=== PATIENT | male | born 1980 | race Caucasian/White ===

== ENCOUNTER 2018-10-03 10:14 | Emergency (ER) | payer SELFPAY ==
--- NOTE | 2018-10-03 11:00 | ERPHSYRPT ---
- History of Present Illness Time Seen by Provider: 10/03/18 10:39 Source: patient Exam Limitations: no limitations Patient Subjective Stated Complaint: PT states "I went to the dentist wednesday and they gave me antibiotics and they told me to come back today to pull the tooth but there is still an infection and they told me to come here to maybe get a shot" Triage Nursing Assessment: Pt presented alert and oriented X 3, skin pwd Pt ambulates with an upright steady gait, able to speak in clear full sentences. pt in no apparent respiratory distress. Physician History: Pt started c/o right lower tooth ache 3 days ago, he was seen by dentist and started on PO Clindamycin 600mg TID. He was seen again today and was sent here. Pt denies severe headaches, fever, nausea, vomiting, no throat swelling, difficulty swallowing or breathing, other complaints, besides the tooth aches. Timing/Duration: gradual onset Severity: moderate ENT Location: dental Prearrival Treatment: prescription meds (Clindamycin 600mg TID) Modifying Factors: Improves With: nothing Associated Symptoms: jaw pain, tooth pain, No cough, No fever, No facial pain/ swelling, No headache, No neck pain, No sore throat, No difficulty swallowing, No voice change Allergies/Adverse Reactions: No Known Drug Allergies Allergy (Unverified 10/03/18 10:25) Home Medications: Clindamycin HCl 300 mg PO TID 10/03/18 [History] Hx Tetanus, Diphtheria Vaccination/Date Given: No Hx Influenza Vaccination/Date Given: No Hx Pneumococcal Vaccination/Date Given: No Immunizations Up to Date: Yes - Review of Systems Constitutional: No Symptoms Eyes: No Symptoms Ears, Nose, & Throat: Other (dental pain), No Throat Pain, No Throat Swelling, No Hoarse, No Painful Swallowing Respiratory: No Symptoms Cardiac: No Symptoms Abdominal/Gastrointestinal: No Symptoms Musculoskeletal: No Symptoms Skin: No Symptoms Neurological: No Symptoms All Other Systems: Reviewed and Negative - Past Medical History Pertinent Past Medical History: No - Past Surgical History Past Surgical History: No - Social History Smoking Status: Current every day smoker How long have you smoked: years Exposure to second hand smoke: Yes Drug Use: none Patient Lives Alone: Yes - Nursing Vital Signs Nursing Vital Signs: Initial Vital Signs Temperature 97.7 F 10/03/18 10:20 Pulse Rate 104 H 10/03/18 10:20 Respiratory Rate 18 10/03/18 10:20 Blood Pressure 133/87 10/03/18 10:20 O2 Sat by Pulse Oximetry 99 10/03/18 10:20 Pain Scale Pain Intensity 1 - Physical Exam General Appearance: no apparent distress Nasal Exam: normal inspection Throat Exam: pharynx normal, dental tenderness, moist mucus membranes, No excessive drooling, No mandibular swelling, No pharynx swelling, No tongue swollen, No trismus, No voice changes (severe caries in general, right lower premolar and molar teeth all missing, gum is slightly swollen, covered with fibrin detritus, no purulent discharge. No mouth floor edema, or throat swelling , edema.) Neck Exam: normal inspection, non-tender, supple, trachea midline, No JVD, No lymphadenopathy (R), No lymphadenopathy (L), No stiff neck Cardiovascular/Respiratory Exam: chest non-tender, normal breath sounds, regular rate/rhythm, heart sounds normal, no JVD Abdominal Exam: non-tender, soft Neurologic Exam: alert, oriented x 3, cooperative, normal mood/affect Skin Exam: normal color, warm, dry, No rash, No petechiae, No diaphoresis SpO2 Interpretation: normal SpO2: 99 O2 Delivery: Room Air - Course Nursing assessment & vital signs reviewed: Yes - Progress Progress: unchanged Progress Note: 10/03/18 11:01 I explained him, that he needs to continue taking Clindamycin as directed 300 mg 2 caps TID, and follow up with his dentist drink plenty of fluids, and rinse his mouth frequently with warm saline water and return if severe headaches, vomiting, throat swelling difficulty swallowing or breathing. Counseled pt/family regarding: diagnosis, need for follow-up - Departure Departure Disposition: Home Clinical Impression: Dental caries Condition: Stable Critical Care Time: No Instructions: Tooth Abscess (DC), Tooth Decay, Adult (DC), Dental Pain (DC) Additional Instructions: Continue drinking plenty of fluids, and rinse mouth frequently with warm saline water and follow up with your dentist in 1 week, return if severe headaches, vomiting, fever> 102 F or difficulty swallowing, breathing, severe throat swelling!
[2018-10-03 11:11] VITALS: BP 128/78; PULSE 102; O2SAT 98
== END 2018-10-03 11:14 | disposition home or self-care (01) ==
LOC: ED 10:14
DX: K02.9 Dental caries, unspecified (principal)
CPT/HCPCS: 99283